=== PATIENT | male | born 1940 | race Caucasian/White ===

== ENCOUNTER 2017-10-13 07:20 | Day surgery (SDC) | payer MEDICARE, OTHER ==
[~2017-10-13 07:20] MED LIST: ACETAMINOPHEN 325 MG TAB PO; PHENYLEPHRINE HCL 10 % OPHTH. SOL 5ML OD; PROPARACAINE 0.5% OPHTH SOL 15ML OD
[2017-10-13] MEDS ORDERED: MIDAZOLAM INJ 2 MG/2 ML VIAL (J2250) As Ordered (07:32)
[2017-10-13] MEDS ORDERED: fentaNYL 100 MCG/2 ML INJECTION (J3010) As Ordered (07:32)
[2017-10-13] MEDS ORDERED: KETOROLAC 0.5% OPHTH SOLN OD (07:45)
[2017-10-13] MEDS ORDERED: TRIMETHOBENZAMIDE 300 MG CAP PO (07:45)
[2017-10-13] MEDS ORDERED: AcetaZOLAMIDE 500 MG ER CAP PO (07:45)
[2017-10-13] MEDS ORDERED: LIDOCAINE 1% SDV 5 ML VIAL SC (08:00)
[2017-10-13] MEDS ORDERED: ASPIRIN 325 MG TAB As Ordered (08:15)
[2017-10-13] MEDS: ASPIRIN 81 MG CHEW TABLET PO (08:25)
[2017-10-13] MEDS: LIDOCAINE 3.5 % 1ML OPHTH TOPICAL GEL OU (08:44)
[2017-10-13] MEDS: TROPICAMIDE 1% OPHTH SOLN 2ML OD (08:45)
[2017-10-13] MEDS: OFLOXACIN 0.3 % (OCUFLOX) OPTH SOL 5ML OD (08:45)
[2017-10-13] MEDS: PHENYLEPHRINE 2.5% OPHTH SOL 2ML OD (08:45)
[2017-10-13] MEDS: CYCLOPENTOLATE 2% OPHTH SOLN 2ML BTL OD (08:45)
[2017-10-13] MEDS: HEALON DUET (HEALON 10MG/ML 0.55ML & HEALON ENDOCOAT 30MG/ML 0.85ML) As Ordered (09:24)
[2017-10-13] MEDS: POVIDONE-IODINE 5% OPHTH PREP SOL 30ML As Ordered (09:24)
[2017-10-13] MEDS: TRIAMCINOLONE PRES FR 40 MG/ML 1ML(TRIESENCE)(OR EYE ONLY)(J3300 PER 1MG) As Ordered (09:24)
[2017-10-13] MEDS: LIDOCAINE 1% SDV 5 ML VIAL As Ordered (09:25)
[2017-10-13] MEDS: BSS with VANC/TOB/EPI for EYE CASES IR (09:25)
[2017-10-13] MEDS: MOXIFLOXACIN IN BSS 0.25MG/0.25ML INTRACAMERAL INJ (OR EYE ONLY)(J2280) As Ordered (09:25)
== END 2017-10-13 10:13 | disposition home or self-care (01) ==
LOC: M SDC 07:20
DX: H26.9 Unspecified cataract (principal); I25.10 Atherosclerotic heart disease of native coronary artery without angina pectoris; J44.9 Chronic obstructive pulmonary disease, unspecified; I11.9 Hypertensive heart disease without heart failure; E78.5 Hyperlipidemia, unspecified; N40.0 Benign prostatic hyperplasia without lower urinary tract symptoms; K21.9 Gastro-esophageal reflux disease without esophagitis; L40.9 Psoriasis, unspecified; M54.5 Low back pain; M19.90 Unspecified osteoarthritis, unspecified site; I25.2 Old myocardial infarction; J45.909 Unspecified asthma, uncomplicated; Z95.5 Presence of coronary angioplasty implant and graft; Z79.899 Other long term (current) drug therapy; Z79.51 Long term (current) use of inhaled steroids; Z79.82 Long term (current) use of aspirin; Z88.8 Allergy status to other drugs, medicaments and biological substances
CPT/HCPCS: 66984

== ENCOUNTER 2017-11-02 07:24 | Day surgery (SDC) | payer MEDICARE, OTHER ==
[~2017-11-02 07:24] MED LIST changes: -PHENYLEPHRINE HCL 10 % OPHTH. SOL 5ML OD; +PHENYLEPHRINE HCL 10 % OPHTH. SOL 5ML OS; -PROPARACAINE 0.5% OPHTH SOL 15ML OD; +PROPARACAINE 0.5% OPHTH SOL 15ML XX
[2017-11-02] MEDS ORDERED: KETOROLAC 0.5% OPHTH SOLN XX (07:30)
[2017-11-02] MEDS ORDERED: TRIMETHOBENZAMIDE 300 MG CAP PO (07:30)
[2017-11-02] MEDS: LIDOCAINE 3.5 % 1ML OPHTH TOPICAL GEL OU (08:17)
[2017-11-02] MEDS: OFLOXACIN 0.3 % (OCUFLOX) OPTH SOL 5ML OS (08:17)
[2017-11-02] MEDS: PHENYLEPHRINE 2.5% OPHTH SOL 2ML OS (08:17)
[2017-11-02] MEDS: CYCLOPENTOLATE 2% OPHTH SOLN 2ML BTL OS (08:17)
[2017-11-02] MEDS: TROPICAMIDE 1% OPHTH SOLN 2ML OS (08:17)
[2017-11-02] MEDS ORDERED: MIDAZOLAM INJ 2 MG/2 ML VIAL (J2250) As Ordered (08:35)
[2017-11-02] MEDS ORDERED: fentaNYL 100 MCG/2 ML INJECTION (J3010) As Ordered (08:35)
[2017-11-02] MEDS: BSS with VANC/TOB/EPI for EYE CASES IR (08:42)
[2017-11-02] MEDS: MOXIFLOXACIN IN BSS 0.25MG/0.25ML INTRACAMERAL INJ (OR EYE ONLY)(J2280) As Ordered (08:42)
[2017-11-02] MEDS: POVIDONE-IODINE 5% OPHTH PREP SOL 30ML As Ordered (08:42)
[2017-11-02] MEDS: HEALON DUET (HEALON 10MG/ML 0.55ML & HEALON ENDOCOAT 30MG/ML 0.85ML) As Ordered (08:42)
[2017-11-02] MEDS: LIDOCAINE 1% SDV 5 ML VIAL As Ordered (08:42)
[2017-11-02] MEDS: TRIAMCINOLONE PRES FR 40 MG/ML 1ML(TRIESENCE)(OR EYE ONLY)(J3300 PER 1MG) As Ordered (08:42)
[2017-11-02] MEDS: AcetaZOLAMIDE 500 MG ER CAP PO (09:22)
== END 2017-11-02 09:47 | disposition home or self-care (01) ==
LOC: M SDC 07:24
DX: H25.9 Unspecified age-related cataract (principal); I25.10 Atherosclerotic heart disease of native coronary artery without angina pectoris; I10 Essential (primary) hypertension; E78.5 Hyperlipidemia, unspecified; K21.9 Gastro-esophageal reflux disease without esophagitis; L40.8 Other psoriasis; Z98.61 Coronary angioplasty status; Z79.899 Other long term (current) drug therapy; I25.2 Old myocardial infarction; Z79.82 Long term (current) use of aspirin
CPT/HCPCS: 66984

== ENCOUNTER → 2019-06-18 | Outpatient (CLI) | payer MEDICARE, OTHER ==
[~2019-06-18] MED LIST changes: -ACETAMINOPHEN 325 MG TAB PO; +ADV100INH INH; +ALBU83IN INH; +ASPI-527 PO; +ATOR1TAB19 PO; +CALC0.009 TOP; +FLOM0.4C39 PO; +METO50TA7 PO; -PHENYLEPHRINE HCL 10 % OPHTH. SOL 5ML OS; -PROPARACAINE 0.5% OPHTH SOL 15ML XX; +RANI150T PO; +VENTAER INH; +[UNRECOGNIZED DRUG - OTHER] TOP
--- NOTE | 2019-06-20 10:21 | REP ---
MRI lumbar spine: 06/18/2019. Indication: Low back pain. Comparison: None. Technique: Multiplanar short and long TR sequences of the lumbar spine were obtained without IV Gadolinium. Findings: Vertebral body alignment is within anatomical limits. No worrisome marrow signal is present. Tiny interosseous hemangiomas are noted within L5 as well as T12. The visualized cord is unremarkable. No significant paraspinal soft tissue abnormalities are detected. L1/L2: Disc bulge is present most apparent anteriorly without significant spinal canal or neural foraminal narrowing. L2/L3: Diffuse disc bulge is present, again more pronounced anteriorly. There is significant bilateral facet arthropathy. Moderate to severe bilateral recess narrowing is present. There is moderate to severe left and mild right neural foraminal narrowing. L3/L4: Diffuse disc and spur complex and bilateral facet arthropathy are present with ligamental laxity with resulting severe spinal canal narrowing. Moderate bilateral neural foraminal narrowing is present. L4/L5: There is significant bilateral facet arthrosis particularly on the left with severe left and moderate right neural foraminal narrowing. Moderate bilateral recess narrowing is present. L5/S1: Significant bilateral facet arthrosis is present, particularly on the left with moderate to severe left neural foraminal narrowing. There is moderate left and mild right recess narrowing. The right neural foramen is patent. 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 Electronically Signed by Javid Agee DO 06/20/2019 10:14 A
== END ==
LOC: M RAD 11:13
PROVIDERS: ATTEND Physician Assistant
DX: M51.36 Other intervertebral disc degeneration, lumbar region (principal)

== ENCOUNTER → 2019-07-14 | Outpatient (REF) | payer MEDICARE, OTHER ==
[2019-07-14 14:52] LABS: INR 1.03; PARTIAL THROMBOPLASTIN TIME 27.6 SECONDS (25.0-38.4); PROTHROMBIN TIME 13.2 SECONDS (11.8-14.0)
== END ==
LOC: M LAB REF 14:16
PROVIDERS: ATTEND Family Medicine
DX: Z01.812 Encounter for preprocedural laboratory examination (principal); M51.36 Other intervertebral disc degeneration, lumbar region; M47.816 Spondylosis without myelopathy or radiculopathy, lumbar region; Z79.01 Long term (current) use of anticoagulants

== ENCOUNTER → 2020-07-11 | Outpatient (REF) | payer MEDICARE, OTHER | LOC: M LAB REF 12:22 | PROVIDERS: ATTEND Family Medicine | DX: R74.01 Elevation of levels of liver transaminase levels (principal) ==

== ENCOUNTER → 2021-10-16 | Outpatient (CLI) | payer MEDICARE, OTHER ==
[2021-10-16 07:48] LABS: HEMATOCRIT 49.6 % (42.0-52.0); HEMOGLOBIN 16.7 g/dl (13.5-17.5); MEAN CORPUSCULAR HEMOGLOBIN 30.6 pg (27.0-33.0); MEAN CORPUSCULAR HGB CONC 33.7 g/dl (32.0-36.5); PLATELET COUNT, AUTOMATED 157 10^3/uL (150-450); RED BLOOD COUNT 5.45 10^6/uL (4.30-6.10); WHITE BLOOD COUNT 6.7 10^3/uL (4.0-10.0)
[2021-10-16 08:00] LABS: INR 0.96; PROTHROMBIN TIME 13.2 SECONDS (12.7-14.5)
[2021-10-16 08:14] LABS: ALBUMIN 3.8 GM/DL (3.2-5.2); ALT/SGPT 39 U/L (12-78); BILIRUBIN,TOTAL 0.9 MG/DL (0.2-1.0); BLOOD UREA NITROGEN 18 MG/DL (7-18); CALCIUM LEVEL 9.3 MG/DL (8.8-10.2); CARBON DIOXIDE LEVEL 30 MEQ/L (21-32); CHLORIDE LEVEL 106 MEQ/L (98-107); GLOMERULAR FILTRATION RATE > 60.0 (>42); GLUCOSE, FASTING 90 MG/DL (70-100); SODIUM LEVEL 141 MEQ/L (136-145); TOTAL PROTEIN 7.2 GM/DL (6.4-8.2)
[2021-10-16 08:22] LABS: ERYTHROCYTE SEDIMENTATION RATE 6 mm/hr (0-20)
== END ==
LOC: M RAD 06:51
PROVIDERS: ATTEND Orthopaedic Surgery
DX: M17.12 Unilateral primary osteoarthritis, left knee (principal); Z79.01 Long term (current) use of anticoagulants

== ENCOUNTER 2023-03-18 10:33 | Day surgery (SDC) | payer MEDICARE, OTHER ==
[~2023-03-18] VITALS: Ht 170.2 cm; Wt 117.9 kg
[~2023-03-18 10:33] MED LIST changes: +ALBU2.5V10 INH; -ALBU83IN INH; +CIPROFLOXACIN 0.3% OPHTH OINTMENT As Ordered ONE; +ECOT81TA5 PO; +FAMO40TA3 PO; +LIDOCAINE 1% SDV 5ML VIAL As Ordered ONE; +LIDOCAINE 2% W/EPINEPHRINE 20ML VIAL **PRES FREE As Ordered ONE; +LIDOCAINE 3.5 % 1ML OPHTH TOPICAL GEL OU ONE; +TETRACAINE 0.5% OPHTH SOLN 4ML As Ordered ONE
[2023-03-18] MEDS ORDERED: LIDOCAINE 2% 100MG/5ML SDV (FOR ANES.) As Ordered ONE (12:58)
[2023-03-18] MEDS ORDERED: fentaNYL 100 MCG/2 ML INJECTION As Ordered ONE (12:58)
[2023-03-18] MEDS ORDERED: propofoL 200 MG/20 ML VIAL As Ordered ONE (12:58)
[2023-03-18 14:40] VITALS: BP 150/79; TEMP 97.5; O2SAT 95
== END 2023-03-18 14:45 | disposition home or self-care (01) ==
LOC: M SDC 10:33
PROVIDERS: ATTEND Ophthalmology
DX: H02.831 Dermatochalasis of right upper eyelid (principal); H02.834 Dermatochalasis of left upper eyelid; I10 Essential (primary) hypertension; K21.9 Gastro-esophageal reflux disease without esophagitis; M19.90 Unspecified osteoarthritis, unspecified site; M54.9 Dorsalgia, unspecified; L40.9 Psoriasis, unspecified; J45.909 Unspecified asthma, uncomplicated; N40.0 Benign prostatic hyperplasia without lower urinary tract symptoms; Z95.5 Presence of coronary angioplasty implant and graft; Z87.891 Personal history of nicotine dependence; Z79.899 Other long term (current) drug therapy; Z79.51 Long term (current) use of inhaled steroids
CPT/HCPCS: 15823; 88302; J3010

== ENCOUNTER 2025-07-20 07:14 | Day surgery (SDC) | payer MEDICARE, OTHER ==
[~2025-07-20] VITALS: Ht 170.2 cm; Wt 115.5 kg
[~2025-07-20 07:14] MED LIST changes: -ADV100INH INH; +ADVA1AER8 INH; +CALC0.0017 TOP; -CALC0.009 TOP; -CIPROFLOXACIN 0.3% OPHTH OINTMENT As Ordered ONE; -FLOM0.4C39 PO; -LIDOCAINE 1% SDV 5ML VIAL As Ordered ONE; -LIDOCAINE 2% W/EPINEPHRINE 20ML VIAL **PRES FREE As Ordered ONE; -LIDOCAINE 3.5 % 1ML OPHTH TOPICAL GEL OU ONE; +TAMS-18 PO; -TETRACAINE 0.5% OPHTH SOLN 4ML As Ordered ONE
[2025-07-20 08:01] VITALS: TEMP 97.5
[2025-07-20 08:23] VITALS: BP 122/69; O2SAT 96
== END 2025-07-20 08:35 | disposition home or self-care (01) ==
LOC: M OPP 07:14
PROVIDERS: ATTEND Surgery
DX: Z12.11 Encounter for screening for malignant neoplasm of colon (principal); D12.6 Benign neoplasm of colon, unspecified; K57.30 Diverticulosis of large intestine without perforation or abscess without bleeding; J45.909 Unspecified asthma, uncomplicated; Z95.5 Presence of coronary angioplasty implant and graft; Z79.899 Other long term (current) drug therapy; Z87.891 Personal history of nicotine dependence